=== PATIENT | male | born 1980 | race Caucasian/White ===

== ENCOUNTER → 2019-09-25 | Outpatient (CLI) | payer OTHER ==
[~2019-09-25] VITALS: Ht 182.9 cm; Wt 65.8 kg
[~2019-09-25] MED LIST: NO HOME MED
--- NOTE | ~2019-09-25 | HPC ---
[facility] [address] [place] [address] PAIN MANAGEMENT CONSULTATION Name: LUPE CRENSHAW Room #: REG FLO Baum.#: [id number] Admission: 09/25/19 Attend Phys: Steven Starr MD Discharge: Date of : 84 Report #: [id number] THIS REPORT FOR: //name// cc: JAVI - No family physician/PCP FAM - No family physician/PCP ~ THIS REPORT FOR: //name// CC: Shelby Ni APRN [facility] physician/PCP Zach Starr DATE OF SERVICE: 09/25/2019 I am seeing the patient today at the request of Shelby Ni. He has had pain in his low back radiating into his posterior thigh, now calves and also some discomfort into his testicles bilaterally. The pain is not positional. It is a bit worse towards the end of the day. 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 Works for [employer] and has to get out and do some lifting. He has not taken time off for this problem and has been managing as best possible. He does not want to take medications. He does remain fit and exercises regularly and is slender and lean. He describes his pain as 7/10 continuous, shooting, cramping, aching. It clearly follows an L5-S1 distribution, mostly S1. An MRI scan was performed and he has evidence of degenerative disk disease, most significant at L5-S1 where he has a darkened disk. There may be a discogenic component to this, but there is some radiculopathy as well. MEDICATIONS: None. ALLERGIES: PENICILLIN. PAST MEDICAL HISTORY: Unremarkable. PAST SURGICAL HISTORY: Appendectomy 2008. SOCIAL HISTORY: , commercial truck driver, smokes a pack a day for 15 years. Denies use of alcohol or recreational drugs. REVIEW OF SYSTEMS: Negative except for fatigue after a long day of work, mostly normal. Pain intensity scores as noted. PHYSICAL EXAMINATION: GENERAL: Moves independently from sitting to standing position, ambulates [facility] [address] [place] [address] PAIN MANAGEMENT CONSULTATION Name: CECELIA GULSHANLUPE DANIEL Room #: REG [facility].#: [id number] Admission: 09/25/19 Attend Phys: Steven Starr MD Discharge: Date of : 84 Report #: [id number] without difficulty. CHEST: Clear. CARDIAC: Rhythm is regular. ABDOMEN: Soft. MUSCULOSKELETAL: Spine is nontender. Good range of motion. Straight leg raising is mildly positive in the sitting position. I did not perform a testicular exam, but would do that in a followup visit. He should follow up with his primary care physician as well. IMPRESSION: Lumbar spondylosis, degenerative disk disease at L5-S1. Discogenic pain with radiculopathy. I think he is an excellent candidate for a simple epidural steroid injection trial. This might provide dramatic relief of the inflammation around the disk. I would encourage him to continue to remain as active as he has been. Preauthorization is sought for an L5-S1 midline epidural injection. We will see him back in the clinic once we have received preauthorization. By: [id number] Steven Starr MD /nt
[2019-09-25 14:53] VITALS: BP 107/73
--- NOTE | 2019-09-25 15:29 | NUR ---
Pain Clinic Assessment: 1. History of Osteoarthritis: Not Applicable History of Rheumatoid Arthritis: Not Applicable 2. Height: 6 ft. 0 in. 182.9 cm. Weight: 145.0 lb. oz. 65.772 kg. Patient's BMI: 19.7 3. Vital Signs: BP: 107/73 Pulse: 71 Resp: 14 Temp: 02 Sat: 98 ECG Mon: 4. Pain Intensity: 7 5. Fall Risk: Dizziness: N Needs help standing or walking: N Fallen in the last 3 months: Y Fall risk comments: 6. Patient on Blood Thinner: None 7. History of Hypertension: Y 8. Opioid Therapy greater than 6 weeks: N Opiate Contract Signed: 9. Risk Assessment Tool Provided: 0-LOW RISK 10. Functional Assessment Tool: 11. Recreational Drug Use: Never Drug Type: Tobacco Use: Current Every Day Smoker Tobacco Type: Cigars Amount or Packs/day: 2/DAY How Many Years: 15 Alcohol Use: No Frequency: Quant:
== END ==
LOC: PAIN 06:58
DX: M47.26 Other spondylosis with radiculopathy, lumbar region (principal); M51.37 Other intervertebral disc degeneration, lumbosacral region; Z88.8 Allergy status to other drugs, medicaments and biological substances; Z79.899 Other long term (current) drug therapy